=== PATIENT | male | born 1930 | race Caucasian/White ===

== ENCOUNTER 2018-07-15 16:40 | Inpatient (IN) | payer MEDICARE, BC ==
[~2018-07-15] VITALS: Ht 170.2 cm; Wt 98.9 kg
[2018-07-15] VITALS (7 sets, daily range): BP systolic 99–129; BP diastolic 46–89
--- NOTE | 2018-07-15 16:42 | NUR ---
PT BIBRA FROM HOME TO ER BED . 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 GOWNED AND PLACED ON MONITOR. RT AT BEDSIDE. PLACED ON BIPAP 15/5, R [address] O[address]%. [address] DAMIAN AT BEDSIDE W/ ORDERS. WILL CARRY OUT. Addendum: 07/15/18 at 1845 by JONN PT IS ASSIGNED TO ICU RM#: [id number], DX: RESPIRATORY FAILURE, AND ACCEPTING: MYNOR CAMPOS NP
--- NOTE | 2018-07-15 16:55 | NUR ---
BLOOD DRAWN FROM EXISTING IVHL. SENT TO LAB.
[2018-07-15] MEDS ORDERED: FUROSEMIDE 40 MG/4 ML VIAL ONE (16:58)
[2018-07-15] MEDS ORDERED: ASPIRIN 325 MG TABLET ONE (16:58)
[2018-07-15] MEDS ORDERED: methylPREDNISolone SOD SUCC 125 MG/2ML VIAL ONE (16:58)
[2018-07-15] MEDS ORDERED: IPRATROPIUM NEB FS 0.5 MG/2.5 ML AMPUL.NEB ONE (16:59)
[2018-07-15] MEDS ORDERED: ALBUTEROL FS 2.5 MG/3 ML VIAL.NEB ONE (16:59)
[2018-07-15] MEDS ORDERED: methylPREDNISolone SOD SUCC 125 MG/2ML VIAL IV ONE (17:00)
[2018-07-15] MEDS ORDERED: ASPIRIN 325 MG TABLET PO ONE (17:00)
[2018-07-15] MEDS ORDERED: CEFEPIME 1 GM in IV D5W 50 ML IV ONE (17:00)
[2018-07-15] MEDS ORDERED: FUROSEMIDE 40 MG/4 ML VIAL IV ONE (17:00)
[2018-07-15] MEDS ORDERED: ALBUTEROL FS 2.5 MG/3 ML VIAL.NEB CONTNEB ONE (17:00)
[2018-07-15] MEDS ORDERED: IPRATROPIUM NEB FS 0.5 MG/2.5 ML AMPUL.NEB NEB ONE (17:00)
[2018-07-15 17:02] LABS: BASOPHILS % (AUTO) 0.2 % (0.0-2.0); EOSINOPHILS % (AUTO) 1.6 % (0.0-6.0); HEMATOCRIT 40 % (39-51); LYMPHOCYTES # (AUTO) 3.1 /CMM (0.8-4.8); LYMPHOCYTES % (AUTO) 34.8 % (20.0-44.0); MEAN CORPUSCULAR HEMOGLOBIN 28 PG (26.0-33.0); MEAN CORPUSCULAR HGB CONC 30 g/dl (31.0-36.0); MEAN CORPUSCULAR VOLUME 93 fL (80-96); MONOCYTES # (AUTO) 0.5 /CMM (0.1-1.30); MONOCYTES % (AUTO) 5.8 % (2.0-12.0); NEUTROPHILS # (AUTO) 5.3 /CMM (1.8-8.9); NEUTROPHILS % (AUTO) 57.6 % (43.0-81.0); PLATELET COUNT (AUTO) 203 /CMM (150-450); RED BLOOD CELL COUNT(AUTO) 4.26 MIL/uL (4.5-6.0)
--- NOTE | 2018-07-15 17:07 | NUR ---
RT AT BEDSIDE FOR BREATHING TREATMENT.
--- NOTE | 2018-07-15 17:11 | NUR ---
RT NOTE PT PLACED ON BIPAP PER MD ORDER. SETTINGS FOLLOW 19/03 40%. PT AWAKE AND ALERT. ALARMS SET PER PROTOCOL AND AUDIBLE. BIPAP PLUGGED IN TO RED OUTLET. AMBU BAG AT BED SIDE. Addendum: 07/15/18 at 1713 by ARTIE POLANCO RT Amended: Links added.
[2018-07-15 17:17] LABS: CALCIUM, SERUM 8.5 mg/dL (8.5-10.1); CARBON DIOXIDE 26 mmol/L (21-32); CHLORIDE 104 mmol/L (98-107); CREATININE 1.6 mg/dL (0.6-1.3); GLUCOSE 181 mg/dL (74-106); POTASSIUM 3.6 mmol/L (3.5-5.1); SODIUM SERUM 138 mmol/L (136-145); UREA NITROGEN, BLOOD 23 mg/dL (7-18)
[2018-07-15 17:19] LABS: INR 0.95 (0.85-1.15)
[2018-07-15 17:23] LABS: ALANINE AMINOTRANSFERASE 15 U/L (12-78); ALBUMIN 3.7 g/dL (3.4-5.0); ALKALINE PHOSPHATASE 58 U/L (46-116); ASPARTATE AMINOTRANSFERASE 17 U/L (15-37); BILIRUBIN,DIRECT 0.1 mg/dL (0.0-0.2); BILIRUBIN,TOTAL 0.4 mg/dL (0.2-1.0); LIPASE 165 U/L (73-393); TOTAL PROTEIN, SERUM 7.2 g/dL (6.4-8.2)
[2018-07-15 17:25] LABS: TROPONIN I < 0.017 ng/mL (0.00-0.056)
[2018-07-15 17:27] LABS: ABG BASE EXCESS -1.7 mmol/L; ABG OXYGEN SATURATION 99.1 % (92.0-98.5); ABG PCO2 38.9 mmHg (35.0-45.0); ABG PH 7.389 (7.350-7.450); ABG PO2 365.8 mmHg (75.0-100.0); AaDO2 19.2 mmHg; COHb 0.9 % (0.5-1.5); MetHb 0.5 % (0.0-1.5); O2Hb 97.7 % (94.0-97.0)
[2018-07-15] MEDS ORDERED: LEVO75TA7 PO (17:45)
[2018-07-15] MEDS ORDERED: METO-358 PO (17:45)
[2018-07-15] MEDS ORDERED: TAMS0.4C34 PO (17:45)
[2018-07-15] MEDS ORDERED: BENA20TA9 PO (17:45)
[2018-07-15] MEDS ORDERED: FINA5TAB11 PO (17:45)
[2018-07-15 17:52] LABS: APPEARANCE,URINE Clear (CLEAR); BILIRUBIN,URINE Negative (NEGATIVE); BLOOD, URINE Moderate Ery/uL (NEGATIVE); COLOR,URINE Light yellow (YELLOW); KETONES,URINE Negative (NEGATIVE); LEUKOCYTE ESTERASE ,URINE Negative (NEGATIVE); NITRITE, URINE Negative (NEGATIVE); PH,URINE 6.5 (5.0-8.0); PROTEIN,URINE >=300 mg/dl (NEGATIVE); UGLUCOSE 100 MG/DL mg/dL (NEGATIVE); UROBILINOGEN,URINE 0.2 EU/dL (0.2)
[2018-07-15 18:03] LABS: BACTERIA,URINE Few /HPF (None Seen); RBC,URINE 21-50 /HPF (0-2); SQUAMOUS EPITHELIAL CELL,UR Few /HPF (None Seen); WBC,URINE 0-2 /HPF (0-3)
--- NOTE | 2018-07-15 18:13 | NUR ---
CALLED NURSING FORMULA BOTTLER AND REQUESTED AN ICU BED FOR THIS PT.
--- NOTE | 2018-07-15 18:37 | NUR ---
SON RITU LEFT CONTACT # [phone]
[2018-07-15] MEDS ORDERED: ACETAMINOPHEN 650 MG/SUPP.RECT RC PRN (19:00)
[2018-07-15] MEDS ORDERED: IV NS 0.9% 1,000 ML IV ONE (19:00)
[2018-07-15] MEDS ORDERED: ONDANSETRON HCL/PF 4 MG/2 ML VIAL IVP PRN (19:00)
[2018-07-15] MEDS ORDERED: ZOLPIDEM TARTRATE 5 MG TABLET PO PRN (19:00)
[2018-07-15] MEDS ORDERED: ALBUTEROL FS 2.5 MG/3 ML VIAL.NEB NEB PRN (19:00)
[2018-07-15] MEDS ORDERED: NOREPINEPHRINE 8 MG in IV D5W 500 ML IV PRN (19:00)
[2018-07-15] MEDS ORDERED: IPRATROPIUM BROMIDE 14 GM INHALER (or 12.9 GM) IH PRN (19:00)
--- NOTE | 2018-07-15 19:15 | NUR ---
PT IS ASSIGNED TO ICU RM#: [id number], DX: RESP FAILURE, AND ACCEPTING: MYNOR CAMPOS NP
--- NOTE | 2018-07-15 19:22 | NUR ---
REPORT GIVEN TO SHANNA MCINTYRE, PT AWAITING TRANSFER TO FLOOR.
[2018-07-15] MEDS ORDERED: NITROGLYCERIN 0.4 MG/TAB BOTTLE SL ONE (19:30)
--- NOTE | 2018-07-15 19:50 | NUR ---
DIRECTOR REGULATORY COMPLIANCERESEARCH TECH NOTES RECEIVED PATIENT FROM ER VIA [facility]. PATIENT IS AWAKE, ALERT AND ORIENTED X3 BUT WITH PERIODS OF FORGETFULNESS. BREATHING IS SLIGHTLY LABORED, BUT IMPROVING WHILE ON BIPAP 15/5, RATE OF 14 @ 40% FIO2. BEDSIDE COMPONENT ENGINEER SHOWS SINUS RHYTHM, WITH OCCASIONAL PVCs. PATIENT ABLE TO ASSIST WITH TURNING AND REPOSITIONING. LEFT AC #18 FLUSHED WITH NS, PATENT AND INTACT, FREE FROM ANY S/S OF INFILTRATION OR PHLEBITIS. RAMSAY CATHETER PATENT AND INTACT, DRAINING CLEAR YELLOW URINE VIA GRAVITY. PATIENT ORIENTED TO TV REMOTE AND CALL LIGHT SYSTEM, VERBALIZING UNDERSTANDING REGARDING WHEN AND HOW TO ASK FOR ASSISTANCE. WILL CONTINUE TO CLOSELY MONITOR
[2018-07-15] MEDS ORDERED: IPRATROPIUM NEB FS 0.5 MG/2.5 ML AMPUL.NEB NEB PRN (20:00)
--- NOTE | 2018-07-15 21:00 | NUR ---
DISPATCH CLERK NOTES PATIENT PULLING OFF BIPAP MASK D/T DISCOMFORT. RT BRAD AT BEDSIDE FOR MASK ADJUSTMENT.
[2018-07-15] MEDS: HEPARIN SODIUM, PORCINE 5000 UNITS/1 ML VIAL SQ SCH (22:11)
[2018-07-15] MEDS: TAMSULOSIN 0.4 MG CAP.SR.24H PO SCH (22:13)
--- NOTE | 2018-07-15 22:15 | NUR ---
GLASS ENAMEL MIXER NOTES PATIENT NOTED WITH INCREASE IN FREQUENCY OF UNIFOCAL PVCs. RADHA PONCE BOOK PACKER MADE AWARE, LABS ORDERED. WILL MONITOR
--- NOTE | 2018-07-15 22:16 | NUR ---
pt refused bipap. placed on 10l simple mask at this time Addendum: 07/15/18 at 2216 by NOAH TURCIOS RT Amended: Links added.
--- NOTE | 2018-07-15 22:23 | NUR ---
pt on 10l simple mask, flow decreased to 6l due to increased spo2 Addendum: 07/15/18 at 2224 by NOAH PANTOJA Amended: Links added.
--- NOTE | 2018-07-15 22:50 | NUR ---
GEOLOGICAL TECHNICIAN NOTES MAGNESIUM LEVEL 1.8, RADHA PONCE RAIL TECHNICIAN MADE AWARE. RAIL TECHNICIAN ALSO MADE AWARE REGARDING PATIENT'S NONCOMPLIANCE WITH THE TREATMENT PLAN. PATIENT WAS REMOVING BIPAP SO HE WAS PLACED ON SIMPLE MASK AT 10LPM, TITRATED DOWN TO 6LPM, BUT NOW REFUSING MASK. PATIENT ON ROOM AIR. WILL MONITOR RESPIRATORY STATUS
--- NOTE | 2018-07-15 23:00 | NUR ---
PUMP ERECTOR NOTES PATIENT REFUSING IV INSERTION. EXPLAINED TO THE PATIENT REGARDING THE NEED TO HAVE ANOTHER IV LINE. PATIENT VERBALIZES UNDERSTANDING, BUT STATES "I ALREADY HAVE 1 AND THAT SHOULD BE ENOUGH."
[2018-07-16] VITALS (27 sets, daily range): BP systolic 88–156; BP diastolic 34–89
--- NOTE | 2018-07-16 01:00 | NUR ---
RN NOTES PATIENT NOTED TO TRY TO GET OUT OF BED, INCREASED CONFUSION COMPARED TO PREVIOUS BASELINE. STILL STRONGLY REFUSING BIPAP, BUT AGREES TO SIMPLE MASK @ 10LPM. RADHA PONCE NOTIFIED, WILL MONITOR
--- NOTE | 2018-07-16 03:00 | NUR ---
POULTRY HUSBANDMAN NOTES PATIENT NOTED WITH 10 SECOND RUN OF VTACH WHILE SLEEPING. CURRENTLY ON O2 VIA SIMPLE MASK @ 10 LPM. RADHA PONCE MADE AWARE AND UPDATED REGARDING PATIENT'S CURRENT STATUS. STAT ABG ORDERED. ABG RESULT RELAYED TO POISING INSPECTOR. NNO RECEIVED, WILL CONTINUE TO CLOSELY MONITOR
[2018-07-16 03:30] LABS: ABG OXYGEN SATURATION 97.9 % (92.0-98.5); ABG PCO2 31.1 mmHg (35.0-45.0); ABG PO2 125.9 mmHg (75.0-100.0); AaDO2 267.7 mmHg; COHb 0.3 % (0.5-1.5); MetHb 0.5 % (0.0-1.5); O2Hb 97.1 % (94.0-97.0); SITE, ABG Right Radial; VENT MODE, BG 10L SIMPLE MASK
[2018-07-16 04:48] LABS: BASOPHILS % (AUTO) 0.1 % (0.0-2.0); HEMATOCRIT 43 % (39-51); HEMOGLOBIN 13.9 g/dL (13.5-17.5); LYMPHOCYTES # (AUTO) 0.6 /CMM (0.8-4.8); LYMPHOCYTES % (AUTO) 4.1 % (20.0-44.0); MEAN CORPUSCULAR HEMOGLOBIN 31 PG (26.0-33.0); MEAN CORPUSCULAR HGB CONC 32 g/dl (31.0-36.0); MEAN CORPUSCULAR VOLUME 97 fL (80-96); MONOCYTES # (AUTO) 0.1 /CMM (0.1-1.30); MONOCYTES % (AUTO) 1.1 % (2.0-12.0); NEUTROPHILS % (AUTO) 94.7 % (43.0-81.0); PLATELET COUNT (AUTO) 229 /CMM (150-450); RDW COEFFICIENT OF VARIATION 14.9 (11.5-15.0); RED BLOOD CELL COUNT(AUTO) 4.45 MIL/uL (4.5-6.0); WHITE BLOOD COUNT (AUTO) 13.7 K/uL (4.3-11.0)
[2018-07-16 05:20] LABS: ALANINE AMINOTRANSFERASE 13 U/L (12-78); ALBUMIN 3.4 g/dL (3.4-5.0); ALKALINE PHOSPHATASE 50 U/L (46-116); ASPARTATE AMINOTRANSFERASE 17 U/L (15-37); B-TYPE NATRIURETIC PEPTIDE 1792 PG/ML (0-125); BILIRUBIN,TOTAL 0.4 mg/dL (0.2-1.0); CALCIUM, SERUM 9.1 mg/dL (8.5-10.1); CARBON DIOXIDE 24 mmol/L (21-32); CHLORIDE 105 mmol/L (98-107); CREATININE 2.1 mg/dL (0.6-1.3); GLUCOSE 189 mg/dL (74-106); PHOSPHORUS 2.6 mg/dL (2.5-4.9); POTASSIUM 4.4 mmol/L (3.5-5.1); SODIUM SERUM 141 mmol/L (136-145); UREA NITROGEN, BLOOD 27 mg/dL (7-18)
--- NOTE | 2018-07-16 05:40 | NUR ---
PROP CUTTER NOTES PATIENT NOTED WITH MORE FREQUENT EPISODES AND LONGER DURATIONS OF VTACH. RADHA PONCE OVERAGE SHORTAGE AND DAMAGE CLERK NOTIFIED, LABS ALSO RELAYED. RADHA WITH ORDER FOR STAT EKG, THEN START AMIODARONE DRIP PER PROTOCOL. RADHA ALSO WITH ORDER FOR CARDIOLOGY CONSULT. NOTIFIED RADHA THAT EXISTING ORDER ALREADY PLACED FOR CARDIOLOGY CONSULT WITH DR. BRANNON. PER RADHA, "IF DR BRANNON UNAVAILABLE, CONSULT WITH DR GARCIA OR DR ALEJANDRA
[2018-07-16] MEDS ORDERED: AMIODARONE 150 MG/3 ML VIAL IV ONE ×2 (05:49→05:54)
--- NOTE | 2018-07-16 05:58 | NUR ---
ARC CUTTER PLASMA ARC NOTES 0558 TELEMETRY READING AND STAT EKG SHOWS SINUS TACHYCARDIA WITH FREQUENT PVCs. AMIODARONE DRIP LOADING DOSE INITIATED ORDERED 0608 REMAINS IN SINUS TACHYCARDIA WITH FREQUENT PVCs. AMIODARONE DRIP PER PROTOCOL INITIATED
[2018-07-16] MEDS ORDERED: AMIODARONE 900 MG in IV D5W 482 ML IV PRN (06:00)
[2018-07-16] MEDS ORDERED: AMIODARONE 150 MG in IV D5W 100 ML IV ONE (06:00)
--- NOTE | 2018-07-16 07:00 | NUR ---
RN NOTES RECEIVED PT ON BED, A/Ox2,CONFUSED AND FORGETFUL AT TIMES , ON SIMPLE MASK AT 10L , O2 SAT 100% AT THIS TIME, RESPIRATION EVEN AND UNLABORED, ON TELE ST WITH PVC'S , HR IN 100'S , RAMSAY DRINING TO GRAVITY WITH YELLOW CLEAR URINE, PT IS NPO AT THIS TIME PER MD ORDER, AMIODARONE E GTT AT 1MG/MIN RUNNING VIA L AC IV SITE G 18, SITE CLEAN, DRY AND INTACT, PT HAS TENDENCY TO PULL ON HIS IV LINES AND O2 MASK , SITTER IS AT THE BEDSIDE FOR SAFETY PRECAUTIONS , SR UP x3, CALL LIGHT WITHIN EASY REACH, BED LOCKED AND IN LOWEST POSITION, CONTINUE TO MONITOR.
--- NOTE | 2018-07-16 07:00 | NUR ---
CABLE INSTALLER REPAIRER HELPER CLOSING NOTES PATIENT IN BED, CONTINUES TO BE NONCOMPLIANT WITH THE TREATMENT PLAN, REFUSING BIPAP, CONTINUOUSLY TRYING TO REMOVE SIMPLE MASK @ 10LPM, NEEDING FREQUENT REMINDERS TO LEAVE MASK ON. CONTINUES ON AMIODARONE DRIP PER PROTOCOL, CURRENTLY INFUSING @ 1MG/MIN VIA LEFT AC #18G. WILL ENDORSE THE PATIENT TO THE AM SHIFT NURSE FOR CONTINUITY OF CARE
--- NOTE | 2018-07-16 07:15 | NUR ---
RT PT RECEIVED ON 10L SIMPLE MASK TOLERATING WELL. PT IS AWAKE AND ALERT. NO SIGNS OF RESPIRATORY DISTRESS NOTED, WILL CONTINUE TO MONITOR.
[2018-07-16] MEDS: FINASTERIDE (5 MG) 5 MG TABLET PO SCH (08:07)
[2018-07-16] MEDS: LEVOTHYROXINE SODIUM 75 MCG TABLET PO SCH (08:08)
[2018-07-16] MEDS: methylPREDNISolone SOD SUCC 40 MG/ML VIAL IV SCH ×3 (08:08→16:27)
[2018-07-16] MEDS: METOPROLOL SUCCINATE 50 MG TAB.SR.24H PO SCH (08:08)
[2018-07-16] MEDS: HEPARIN SODIUM, PORCINE 5000 UNITS/1 ML VIAL SQ SCH ×2 (08:09→21:32)
--- NOTE | 2018-07-16 08:38 | NUR ---
REPORT GIVEN TO JON FOR CONTINUITY OF CARE .
[2018-07-16 08:44] LABS: THYROID STIMULATING HORMONE 2.42 uIU/mL (0.358-3.74)
[2018-07-16] MEDS ORDERED: PANTOPRAZOLE 40 MG VIAL IV SCH (09:00)
[2018-07-16] MEDS ORDERED: BENAZEPRIL HCL 20 MG TABLET PO SCH (09:00)
[2018-07-16] MEDS ORDERED: FUROSEMIDE 40 MG/4 ML VIAL IV SCH (09:00)
--- NOTE | 2018-07-16 09:00 | NUR ---
HIGHWAY MAINTENANCE CREW WORKER NOTE RECEIVED PATIENT IN BED ,ALERT WITH CONFUSION TRYING TO GET OUT OFF BED AT ALL TIME ,ON TELE MONITOR ON ON IVF ORDERED AND AMIODARONE DRIP ,SITTER AT BEDSIDE ON SIMPLE MASK 10L OF O2 , NO SOB ,WILL CONT TO MONITOR CLOSELY, SR-ST 103 . WITH RAMSAY CATH TO GRAVITY
--- NOTE | 2018-07-16 09:21 | NUR ---
PRECISION FARMING COORDINATOR NOTE PER RT OK TO CHANGE TO 3L NC, SAT 94%, SEEN BY DR JAUREGUI AT BEDSIDE ,[place] [address] STATED OK TO CONT CARE, ALSO NEW HL ON LT FA TERESA 20 INSERTED WITH GOOD BLOOD RETURN Addendum: 07/16/18 at 0933 by JON HARRINGTON RN ECHO DONE ,NOT IN ACUTE DISTRESS
[2018-07-16 09:33] LABS: TROPONIN I 0.235 ng/mL (0.00-0.056)
--- NOTE | 2018-07-16 10:02 | NUR ---
ICI RN NOTE PER DR JAUREGUI OK TO START ON REGULAR CARDIAC DIET
--- NOTE | 2018-07-16 10:14 | NUR ---
PHLEBOTOMY INSTRUCTOR NOTE AMIODARONE DRIP STOPPED PER ORDER DR BRANNON
[2018-07-16] MEDS: ASPIRIN 81 MG TAB.CHEW PO SCH (11:00)
--- NOTE | 2018-07-16 11:02 | NUR ---
TRANSPORTATION MAINTENANCE OPERATOR NOTE ABLE TO SIT AT EDGE OF BED, AND DR SANCHEZ NECROLOGIST AT BEDSIDE
--- NOTE | 2018-07-16 11:57 | NUR ---
CONCERT MANAGER NOTE US OF KIDNEY DOING NOW , SON AT BEDSIDE Addendum: 07/16/18 at 1313 by JON HARRINGTON RN UP ON CHAIR TOLERATED, SAT 93% ,WILL CONT TO MONITOR CLOSELY
--- NOTE | 2018-07-16 13:34 | NUR ---
CEMENT TILE MAKER NOTE BACK TO BED , [facility] CALLED ORDERED Addendum: 07/16/18 at 1444 by JON HARRINGTON RN DOING BILATERAL LEG DOPPLER STUDY
--- NOTE | 2018-07-16 17:28 | NUR ---
MAINTENANCE SHOP MANAGER NOTE VERY RESTLESS, REMOVE IV HL , ONE ON RT FA TERESA 22 INSERTED WITH GOOD BLOOD RETURN Addendum: 07/16/18 at 1800 by JON HARRINGTON RN FED BY DATA TYPIST ATE 25% OF FOOD
[2018-07-16] MEDS: CEFTRIAXONE 1 G in IV D5W 50 ML IV SCH (18:07)
--- NOTE | 2018-07-16 18:34 | NUR ---
TAX FORM PREPARER NOTE PATIENT VERY RESTLESS AND AGITATED TRYING TO GET OUT OFF BED , CALLED TO JOCELYN MCINTYRE HERD TESTER WITH ORDER ATIVAN 1 MG IVQ4 HOUR AND PSYCH EVAL ,ORDER CARRIED OUT Addendum: 07/16/18 at 1848 by JON HARRINGTON RN FAXED FACE SHEET TO [facility], DR WOODS BABY REGISTRY SALES CONSULTANT TODAY Addendum: 07/16/18 at 1856 by JON HARRINGTON RN ATIVAN 1 MG IVP GIVEN ORDERED FOR AGITATION .MALOU F\U , BP 156/104, SAT 95%
[2018-07-16] MEDS: LORAZEPAM INJ 2 MG/ML VIAL IV PRN ×2 (18:51→22:43)
--- NOTE | 2018-07-16 19:00 | NUR ---
Received patient awake,alert,restless and confuse,but responds to his name,able to tell his birthdate,follows simple commands,but confuse and talks incoherently.With O2 via NC 3 L/min,+ cough.Not in any distress,breathing regular and non labored. With sitter at bedside due to agitation and pulling lines and tubes. 2000 Remains very restless and agitated ,pulling tubes ,kicking legs and both arms up and down ,at some point unable to read BP accurately due to patient moving a lot.
[2018-07-16] MEDS: IPRATROPIUM NEB FS 0.5 MG/2.5 ML AMPUL.NEB NEB SCH (19:49)
[2018-07-16] MEDS: ALBUTEROL FS 2.5 MG/3 ML VIAL.NEB NEB SCH (19:49)
[2018-07-16] MEDS: TAMSULOSIN 0.4 MG CAP.SR.24H PO SCH (21:31)
--- NOTE | 2018-07-16 22:00 | NUR ---
Remains very agitated,tachycardic HR-110's,pulling ,and playing with gown and tubes,not listening,seems more confuse,not following commands. 2250 PRN Ativan IV given,will closely monitor neuro and respiratory status. 2300 Ativan seems working well,more quiet ,less restless but still moving both arms and legs.
[2018-07-17] VITALS (22 sets, daily range): BP systolic 90–139; BP diastolic 52–79
--- NOTE | 2018-07-17 | NUR ---
Sedation (Ativan) effective,patient asleep,arousable.Maintained sitter at bedside for patient safety. HR in the 80's,BP in the low 100's,saturating 94-96% ,still on NC 3L/min.Aspiration Precaution observed.
[2018-07-17] MEDS: IPRATROPIUM NEB FS 0.5 MG/2.5 ML AMPUL.NEB NEB SCH ×4 (01:17→20:00)
[2018-07-17] MEDS: ALBUTEROL FS 2.5 MG/3 ML VIAL.NEB NEB SCH ×4 (01:17→20:00)
--- NOTE | 2018-07-17 04:00 | NUR ---
Am care bath doen,still drowsy from the sedation but arousable,calm ,not agitated.av/as stable,not in any distress.
[2018-07-17 04:40] LABS: HEMATOCRIT 42 % (39-51); HEMOGLOBIN 13.9 g/dL (13.5-17.5); LYMPHOCYTES # (AUTO) 0.9 /CMM (0.8-4.8); LYMPHOCYTES % (AUTO) 4.5 % (20.0-44.0); MEAN CORPUSCULAR HEMOGLOBIN 31 PG (26.0-33.0); MEAN CORPUSCULAR HGB CONC 33 g/dl (31.0-36.0); MEAN CORPUSCULAR VOLUME 94 fL (80-96); MONOCYTES # (AUTO) 0.9 /CMM (0.1-1.30); MONOCYTES % (AUTO) 4.4 % (2.0-12.0); NEUTROPHILS # (AUTO) 18.6 /CMM (1.8-8.9); NEUTROPHILS % (AUTO) 91.1 % (43.0-81.0); PLATELET COUNT (AUTO) 232 /CMM (150-450); RDW COEFFICIENT OF VARIATION 15.1 (11.5-15.0); RED BLOOD CELL COUNT(AUTO) 4.45 MIL/uL (4.5-6.0); WHITE BLOOD COUNT (AUTO) 20.4 K/uL (4.3-11.0)
[2018-07-17 04:53] LABS: CALCIUM, SERUM 9.1 mg/dL (8.5-10.1); CARBON DIOXIDE 27 mmol/L (21-32); CHLORIDE 105 mmol/L (98-107); GLUCOSE 135 mg/dL (74-106); POTASSIUM 4.3 mmol/L (3.5-5.1); SODIUM SERUM 139 mmol/L (136-145); UREA NITROGEN, BLOOD 39 mg/dL (7-18)
[2018-07-17 05:11] LABS: BAND % (MANUAL) 2 % (0.0-5.0); LYMPHOCYTES % (MANUAL) 6 % (16-48); MONOCYTES % (MANUAL) 4 % (0-11.0); NEUTROPHILS % (MANUAL) 88 (42-76)
--- NOTE | 2018-07-17 07:10 | NUR ---
Remains stable,saturating 94% on NC 3 L/min.Still asleep,maintained on 1:1 watch (sitter).Report given to Azalea MCINTYRE
[2018-07-17 07:38] LABS: CREATININE, URINE 179.8 MG/DL (30.0-125.0); URINE TOTAL PROTEIN 57.9 mg/dL (0-11.9)
[2018-07-17 07:56] LABS: APPEARANCE,URINE SL CLOUDY (CLEAR); BILIRUBIN,URINE NEGATIVE (NEGATIVE); BLOOD, URINE 3+ Ery/uL (NEGATIVE); COLOR,URINE YELLOW (YELLOW); KETONES,URINE NEGATIVE (NEGATIVE); LEUKOCYTE ESTERASE ,URINE NEGATIVE (NEGATIVE); NITRITE, URINE NEGATIVE (NEGATIVE); PROTEIN,URINE 1+ mg/dl (NEGATIVE); UGLUCOSE NEGATIVE (NEGATIVE); UROBILINOGEN,URINE 0.2 EU/dL (0.2)
[2018-07-17] MEDS: ASPIRIN 81 MG TAB.CHEW PO SCH (08:13)
[2018-07-17] MEDS: FINASTERIDE (5 MG) 5 MG TABLET PO SCH (08:13)
[2018-07-17] MEDS: methylPREDNISolone SOD SUCC 40 MG/ML VIAL IV SCH ×3 (08:13→16:59)
[2018-07-17] MEDS: LEVOTHYROXINE SODIUM 75 MCG TABLET PO SCH (08:13)
[2018-07-17] MEDS: HEPARIN SODIUM, PORCINE 5000 UNITS/1 ML VIAL SQ SCH ×2 (08:14→20:36)
[2018-07-17 08:17] LABS: BACTERIA,URINE Few /HPF (None Seen); SQUAMOUS EPITHELIAL CELL,UR Few /HPF (None Seen)
[2018-07-17 08:18] LABS: HYALINE CASTS, URINE Few /LPF (None Seen); RBC,URINE 21-50 /HPF (0-2)
[2018-07-17 08:19] LABS: MUCUS,URINE Moderate /LPF (None Seen)
[2018-07-17] MEDS: METOPROLOL SUCCINATE 50 MG TAB.SR.24H PO SCH (09:13)
[2018-07-17] MEDS: ATORVASTATIN 10 MG TABLET PO SCH (09:15)
--- NOTE | 2018-07-17 09:30 | NUR ---
RN NOTES 0705 RECEIVED PT ASLEEP, EASY TO AROUSE. ON 02 AT 3LPM VIA OH. NO SOB NOTED. HOB ELEVATED. NO SIGNS OF PAIN NOTED. IV LINE IN PLACE. FC IN PLACE. NO HEMATURIA NOTED. PT COMFORTABLE. ON 1:1 SITTER. NO AGITATION NOTED. WILL MONITOR. 0830 SEEN AND EXAMINED BY GERRY CAMPOS NP. AWARE OF LAB VALUES: WBC 20.4, BUN 30, CREA 2.0 AND CXR RESULT. AWAITING FOR DR CASE CONSULT FOR AGITATION AND DR ATKINS'S CONSULT FOR ELEVATED WBC. PT AFEBRILE. ON IV ATB. NO ASE NOTED. PT CLEAR FOR DOWNGRADE TO TELE PER SLEEP SCIENTIST. WILL MONITOR. 0900 SEEN AND EXAMINED BY DR PELEG. FRANKLIN AWARE OF CXR RESULT. PT ON 02 VIA OH. NO SOB NOTED. HOB ELEVATED. PT CLEAR TO DOWNGRADE PER PULMO. WILL CONTINUE TO MONITOR.
[2018-07-17 09:52] LABS: EOSINOPHIL,URINE None Seen
[2018-07-17] MEDS: IV NS 0.9% 1,000 ML IV PRN (12:27)
[2018-07-17] MEDS: LORAZEPAM INJ 2 MG/ML VIAL IV PRN (12:52)
--- NOTE | 2018-07-17 18:00 | NUR ---
RN NOTES SEEN AND EXAMINED BY DR AHUMADA. PT DROWSY. AROUSABLE TO NAME AND TOUCH. MD REVIEWED H&P, CURRENT MEDS AND LAB VALUES. PER MD, SHE WILL CALL LATER TONIGHT TO ASK HOW THE PT IS DOING. WILL CONTINUE TO MONITOR.
[2018-07-17] MEDS: CEFTRIAXONE 1 G in IV D5W 50 ML IV SCH (18:08)
[2018-07-17 18:28] LABS: BILIRUBIN,DIRECT 0.1 mg/dL (0.0-0.2)
[2018-07-17] MEDS ORDERED: OLANZAPINE 2.5 MG TABLET PO PRN (18:30)
--- NOTE | 2018-07-17 18:30 | NUR ---
RN NOTES PT TRANSFERRED TO ROOM 321-1. FRANCISCO JAVIER CARRILLO TOOK OVER PT'S CARE. IN STABLE CONDITION.
--- NOTE | 2018-07-17 19:30 | NUR ---
HAND SHOES SEWER OPENING NOTES RECEIVED PATIENT IN BED ASLEEP. EASILY AROUSABLE. IN TABLE STABLE CONDITION. BREATHING EVEN AND UNLABORED. NO SOB NOTED. ON 3L OF OXYGEN VIA NC. NO S/S OF PAIN OR DISCOMFORT. NO FACIAL GRIMACING. IV ACCESS ON RIGHT HAND #20 INTACT AND PATENT - INFUSING NS @ 50ML/HR. PATIENT WITH RAMSAY CATH - DRAINING CLEAR YELLOW URINE. ALL OTHER NEEDS ATTENDED TO. SITTER AT BEDSIDE. CALL LIGHT WITHIN REACH. BED ON LOWEST LOCKED POSITION. WILL CONTINUE TO MONITOR.
[2018-07-17] MEDS: TAMSULOSIN 0.4 MG CAP.SR.24H PO SCH (21:02)
[2018-07-18] VITALS: BP 112/62
[2018-07-18] MEDS: IPRATROPIUM NEB FS 0.5 MG/2.5 ML AMPUL.NEB NEB SCH ×4 (01:49→19:05)
[2018-07-18] MEDS: ALBUTEROL FS 2.5 MG/3 ML VIAL.NEB NEB SCH ×4 (01:50→19:05)
--- NOTE | 2018-07-18 01:51 | NUR ---
PRODUCTION LABORER NOTES CONTINUOUS LOFT OPERATOR DEMOND LUIS MADE AWARE OF PATIENT'S LACTIC ACID OF 2.2. DECREASED SINCE PREVIOUS (2.5) - WITH ORDERS TO INCREASE IV FLUIDS TO 75ML/HR. - NOTED AND CARRIED OUT.
[2018-07-18 04:00] VITALS: BP_SYST 134; BP_SYST 144; BP_DIAS 79; BP_DIAS 82
--- NOTE | 2018-07-18 04:15 | NUR ---
INSIDE SALES ADVISOR NOTES SPECIMEN TECHNICIAN CHECKED PATIENT'S ORTHOSTATIC BPs. UNABLE TO OBTAIN STANDING BP DUE TO PATIENT BEING UNABLE/UNSTEADY TO STAND.
[2018-07-18] MEDS: IV NS 0.9% 1,000 ML IV PRN ×2 (06:22→22:46)
[2018-07-18 06:38] LABS: BASOPHILS % (AUTO) 0.1 % (0.0-2.0); HEMATOCRIT 43 % (39-51); HEMOGLOBIN 13.9 g/dL (13.5-17.5); LYMPHOCYTES # (AUTO) 0.7 /CMM (0.8-4.8); LYMPHOCYTES % (AUTO) 5.1 % (20.0-44.0); MEAN CORPUSCULAR HEMOGLOBIN 31 PG (26.0-33.0); MEAN CORPUSCULAR HGB CONC 33 g/dl (31.0-36.0); MEAN CORPUSCULAR VOLUME 95 fL (80-96); MONOCYTES # (AUTO) 0.8 /CMM (0.1-1.30); MONOCYTES % (AUTO) 5.3 % (2.0-12.0); NEUTROPHILS # (AUTO) 12.8 /CMM (1.8-8.9); NEUTROPHILS % (AUTO) 89.5 % (43.0-81.0); PLATELET COUNT (AUTO) 225 /CMM (150-450); RDW COEFFICIENT OF VARIATION 14.7 (11.5-15.0); WHITE BLOOD COUNT (AUTO) 14.3 K/uL (4.3-11.0)
--- NOTE | 2018-07-18 07:02 | NUR ---
STOCKHOLDER CLOSING NOTES PATIENT IN BED AWAKE. ALERT AND ORIENTED X1-2. STABLE CONDITION THROUGHOUT SHIFT. BREATHING EVEN AND UNLABORED. NO SOB NOTED. ON 3L OF OXYGEN VIA NC. NO S/S OF PAIN OR DISCOMFORT. NO FACIAL GRIMACING. IV ACCESS ON RIGHT HAND #20 INTACT AND PATENT - INFUSING NS @ 75ML/HR. PATIENT WITH RAMSAY CATH - DRAINING CLEAR YELLOW URINE. ALL OTHER NEEDS ATTENDED TO. SITTER AT BEDSIDE. CALL LIGHT WITHIN REACH. BED ON LOWEST LOCKED POSITION. WILL ENDORSE TO ONCOMING NURSE FOR CONTINUITY OF CARE.
[2018-07-18 07:05] LABS: CALCIUM, SERUM 9.1 mg/dL (8.5-10.1); CARBON DIOXIDE 26 mmol/L (21-32); CHLORIDE 105 mmol/L (98-107); CREATININE 1.9 mg/dL (0.6-1.3); GLUCOSE 128 mg/dL (74-106); POTASSIUM 4.1 mmol/L (3.5-5.1); SODIUM SERUM 142 mmol/L (136-145); UREA NITROGEN, BLOOD 48 mg/dL (7-18)
--- NOTE | 2018-07-18 07:10 | NUR ---
MOLYBDENUM STEAMER OPERATOR. PT RECEIVED A&0X1, AGITATED BUT RESPONSIVE TO REORIENTATION AT THIS TIME. PT DENIES PAIN. PT WITH IVC INTACT AND OPERATIONAL. O2 SUPPORT VIA NC AT 3LPM. PT BED IN LOWEST LOCKED POSITION WITH HANDRAILSX4 AND CALL FISHER WITH REACH, HOB ELEVATED AND BED ALARM ENGAGED. PT BRIEFED ON TODAY'S POC AND IS WITHOUT CONCERN OR COMPLAINT. WILL CONTINUE POC.
[2018-07-18 08:00] VITALS: BP 144/96
[2018-07-18] MEDS ORDERED: IV NS 0.9% 500 ML BAG IV ONE (08:00)
[2018-07-18] MEDS: methylPREDNISolone SOD SUCC 40 MG/ML VIAL IV SCH ×2 (08:26→13:41)
[2018-07-18] MEDS: ASPIRIN 81 MG TAB.CHEW PO SCH (08:26)
[2018-07-18] MEDS: FINASTERIDE (5 MG) 5 MG TABLET PO SCH (08:26)
[2018-07-18] MEDS: LORAZEPAM INJ 2 MG/ML VIAL IV PRN ×2 (08:26→14:20)
[2018-07-18] MEDS: ATORVASTATIN 10 MG TABLET PO SCH (08:26)
[2018-07-18] MEDS: LEVOTHYROXINE SODIUM 75 MCG TABLET PO SCH (08:27)
[2018-07-18] MEDS: METOPROLOL SUCCINATE 50 MG TAB.SR.24H PO SCH (08:27)
[2018-07-18] MEDS: HEPARIN SODIUM, PORCINE 5000 UNITS/1 ML VIAL SQ SCH ×2 (09:00→22:05)
--- NOTE | 2018-07-18 09:30 | NUR ---
BEATING MACHINE OPERATOR. PT HOSTILE AND NOT RESPONSIVE TO REORIENTATION OR CALM REASSURANCE. PT PULLING OFF CLOTHES AND YELLING. PRN ATIVAN ADMINISTERED. WILL CONTINUE TO MONITOR.
--- NOTE | 2018-07-18 13:45 | NUR ---
CRITICAL LACTIC 2.4 REPORTED TO MD MONTOYAITILOLI. NO NEW ORDERS AT THIS TIME.
--- NOTE | 2018-07-18 14:22 | NUR ---
MSRN. PT WITH INCREASING AGITATION AND NOT RESPONDING TO DIVERSION OR ENGAGEMENT FROM STAFF 1:1. PRN TO BE ADMINISTERED.
--- NOTE | 2018-07-18 17:00 | NUR ---
RT AT BEDSIDE.
--- NOTE | 2018-07-18 17:00 | NUR ---
MSRN. 2ND CRITICAL LACTIC RESULTED, SONAM HAGER AND MD CLARK (WHO WAS JUST SAW PT) INFORMED. NOT ORDERS AT THIS TIME.
--- NOTE | 2018-07-18 18:45 | NUR ---
PT WITH CHANGE IN BREATHING. PT SUDDENLY WITH INCREASED WORK OF BREATHING AND AUDIBLE WHEEZING. PT CHANGED TO SIMPLE MASK AT 6LPM, REPOSITIONED, CONT PULSE OX COMMENCED, RT CALLED FOR RE-ASSESSMENT. SONAM HAGER MADE AWARE.
--- NOTE | 2018-07-18 19:15 | NUR ---
ENGINEER STATION MAINLINE DMITIRI ORDERING STAT CXR AND NOTIFICATION IF ABNORMAL. PRN RT THERAPIES TO BE ORDERED. IF PT DOESN'T IMPROVE CONSIDER ICU TRANS FOR BI.PAP. ORDERS PLACED, WILL ENDORSE TO NIGHT NURSE.
[2018-07-18] MEDS: CEFTRIAXONE 1 G in IV D5W 50 ML IV SCH (19:19)
--- NOTE | 2018-07-18 19:29 | NUR ---
MSRN CLOSING. PT WITH DECREASED WOB POST RT THERAPY. PT WITH O2 VIA NC AT 3LPM. IVC INFUSING PER RX. PT WITH CXR AT THIS TIME. PT WITH 1:1 FOR SAFETY. PT BED IN LOWEST LOCKED POSITION WITH HANDRAILSX4 AND CALL FISHER WITHIN REACH. WILL ENDORSE TO NIGHT NURSE FOR JULIO CESAR
[2018-07-18] MEDS ORDERED: IPRATROPIUM NEB FS 0.5 MG/2.5 ML AMPUL.NEB NEB PRN (19:30)
[2018-07-18] MEDS ORDERED: ALBUTEROL FS 2.5 MG/3 ML VIAL.NEB NEB PRN (19:30)
[2018-07-18 20:00] VITALS: BP_SYST 133; BP_SYST 157; BP_DIAS 54; BP_DIAS 95
--- NOTE | 2018-07-18 20:08 | NUR ---
ms/rn notes Received patient , a/ox1. with O2 @3l nc. with sob upon exertion. With 1:1 sitter at bedside. Vital signs stable, afebrile. cxr done. Called and left a message for Insurance Claims SupervisorNoah.Regarding Lactic acid results and Cxr. will wait for call back.
[2018-07-18 20:31] VITALS: BP 149/91
[2018-07-18] MEDS ORDERED: IV NS 0.9% 500 ML IV ONE (21:00)
[2018-07-18] MEDS: TAMSULOSIN 0.4 MG CAP.SR.24H PO SCH (21:51)
[2018-07-19] VITALS: BP 150/90
[2018-07-19] MEDS: IPRATROPIUM NEB FS 0.5 MG/2.5 ML AMPUL.NEB NEB SCH ×4 (00:49→20:05)
[2018-07-19] MEDS: ALBUTEROL FS 2.5 MG/3 ML VIAL.NEB NEB SCH ×4 (00:50→20:05)
--- NOTE | 2018-07-19 01:12 | NUR ---
ms/rn notes Patient in stable condition. No significant changes noted. Lacitc acid result-2.8 from 3.2 First Aid Director, malia Smiley made aware. Ordered another lactic acid in am. will continue to monitor
[2018-07-19 04:00] VITALS: BP 148/82
[2018-07-19 05:15] VITALS: BP 148/82
--- NOTE | 2018-07-19 05:30 | NUR ---
MS/RN NOTES PATIENT IN BED, NO SIGNIFICANT CHANGES NOTE.D V/S STABLE, AFEBRILE. RESP. EVEN ET UNLABORED. NO RESP. DISTRESS NOTED. WITH 1:1 SITTER AT BEDSIDE. NO COMPLAINTS OF PAIN OR DISCOMFORT. SINUS RHYTHM ON CYBER SECURITY ENGINEER. WITH CONTINUOUS IVF ORDERED. NO CUTE DISTRESS NOTED. ALL NEEDS ATTENDED. WILL ENDORSE ACCORDINGLY FRO CONTINUITY OF CARE..
[2018-07-19 06:25] LABS: BASOPHILS % (AUTO) 0.1 % (0.0-2.0); EOSINOPHILS % (AUTO) 0.1 % (0.0-6.0); HEMATOCRIT 43 % (39-51); LYMPHOCYTES # (AUTO) 0.9 /CMM (0.8-4.8); LYMPHOCYTES % (AUTO) 6.7 % (20.0-44.0); MEAN CORPUSCULAR HEMOGLOBIN 31 PG (26.0-33.0); MEAN CORPUSCULAR HGB CONC 33 g/dl (31.0-36.0); MEAN CORPUSCULAR VOLUME 94 fL (80-96); MONOCYTES # (AUTO) 0.6 /CMM (0.1-1.30); MONOCYTES % (AUTO) 4.4 % (2.0-12.0); NEUTROPHILS # (AUTO) 11.7 /CMM (1.8-8.9); NEUTROPHILS % (AUTO) 88.7 % (43.0-81.0); PLATELET COUNT (AUTO) 195 /CMM (150-450); RDW COEFFICIENT OF VARIATION 14.7 (11.5-15.0); RED BLOOD CELL COUNT(AUTO) 4.53 MIL/uL (4.5-6.0); WHITE BLOOD COUNT (AUTO) 13.2 K/uL (4.3-11.0)
[2018-07-19 06:38] LABS: CALCIUM, SERUM 8.8 mg/dL (8.5-10.1); CARBON DIOXIDE 27 mmol/L (21-32); CHLORIDE 106 mmol/L (98-107); CREATININE 1.4 mg/dL (0.6-1.3); GLUCOSE 124 mg/dL (74-106); POTASSIUM 4.2 mmol/L (3.5-5.1); SODIUM SERUM 141 mmol/L (136-145); UREA NITROGEN, BLOOD 39 mg/dL (7-18)
[2018-07-19 08:00] VITALS: BP 163/95
[2018-07-19] MEDS ORDERED: FUROSEMIDE 40 MG/4 ML VIAL IV ONE ×2 (08:00→12:00)
--- NOTE | 2018-07-19 08:00 | NUR ---
RN NOTES RECEIVED PATIENT IN THE BED AWAKE, A/O X2 WITH CONFUSION. PATIENT TRYING TO GET OUT OF BED. HARD TO FOLLOW DIRECTION, KEEP REMOVING NC. SCHEDULED MEDICATION ADMINISTERED, V/S STABLE. INFUSING NS AT LEFT HAND INTACT. 1;1 SITTER NEXT TO THE BED FOR SAFETY, CALL LIGHT WITHIN TO REACH. PATIENT REFUSED BREATHING TX AT THIS TIME. CONTINUED MONITORING.
[2018-07-19] MEDS: ATORVASTATIN 10 MG TABLET PO SCH (09:26)
[2018-07-19] MEDS: ASPIRIN 81 MG TAB.CHEW PO SCH (09:26)
[2018-07-19] MEDS: FINASTERIDE (5 MG) 5 MG TABLET PO SCH (09:26)
[2018-07-19] MEDS: METOPROLOL SUCCINATE 50 MG TAB.SR.24H PO SCH (09:26)
[2018-07-19] MEDS: LEVOTHYROXINE SODIUM 75 MCG TABLET PO SCH (09:26)
[2018-07-19] MEDS: HEPARIN SODIUM, PORCINE 5000 UNITS/1 ML VIAL SQ SCH ×2 (09:27→20:20)
[2018-07-19] MEDS: LORAZEPAM INJ 2 MG/ML VIAL IV PRN ×2 (10:07→23:35)
--- NOTE | 2018-07-19 10:07 | NUR ---
RN NOTES ADMINISTERED ATIVAN 1 MG/ML IV PUSH FOR HARD TO FOLLOW DIRECTION, CONFUSED, CLAIMING OUT OF BED, FALL PRECAUTION. V/S TAKEN BP- 160, 93, P-84, CONTINUED MONITORING.
--- NOTE | 2018-07-19 12:00 | NUR ---
RN NOTES PATIENT RESTING IN THE BED ANXIETY MEDICATION WERE ADMINISTERED EFFECTIVE, NO ACUTE RESPIRATORY DISTRESS. 1:1 SITTER NEXT TO THE BED FOR SAFETY. CONTINUED MONITORING.
[2018-07-19] MEDS: IV NS 0.9% 1,000 ML IV PRN (14:12)
[2018-07-19 18:00] VITALS: BP 138/80
[2018-07-19] MEDS: CEFTRIAXONE 1 G in IV D5W 50 ML IV SCH (18:13)
--- NOTE | 2018-07-19 18:31 | NUR ---
RN NOTES PATIENT RESTING IN THE BED. SCHEDULED MEDICATION ADMINISTERED, V/S STABLE ON O2-3L NC, NO ACUTE RESPIRATORY DISTRESS. INFUSING NS AT 50ML/HR INTACT. 1:1 SITTER NEXT TO THE BED FOR SAFETY. ASSIST TURN AND REPOSTION Q 2 HR. CALL LIGHT WITHIN TO REACH. ENDORSED ONCOMING NURSE FOR PLAN OF CARE.
--- NOTE | 2018-07-19 19:10 | NUR ---
MS RN INITIAL NOTES Received patient asleep, arousable to touch, A/O x1-2, on left side lying position on bed with patent peripheral IV line L hand with NS infusing well @ 50ml/hr as ordered. With 1-on-1 sitter at bedside. No s/s of discomfort at this time. Afebrile, no respiratory distress noted. Will monitor accordingly.
[2018-07-19 20:00] VITALS: BP 134/87
[2018-07-19] MEDS: TAMSULOSIN 0.4 MG CAP.SR.24H PO SCH (21:33)
--- NOTE | 2018-07-19 23:35 | NUR ---
MS RN NOTES Patient awake, confused, pulling off IV line and nasal canula. Calmed the patient down, making comfortable on bed. Patient insist to remove NC and attempted to pull out IV line. Ativan administered as ordered. Monitored patient closely.
[2018-07-20] MEDS: IPRATROPIUM NEB FS 0.5 MG/2.5 ML AMPUL.NEB NEB SCH ×3 (01:32→14:01)
[2018-07-20] MEDS: ALBUTEROL FS 2.5 MG/3 ML VIAL.NEB NEB SCH ×3 (01:32→14:01)
[2018-07-20 06:25] LABS: CALCIUM, SERUM 8.6 mg/dL (8.5-10.1); CARBON DIOXIDE 28 mmol/L (21-32); CHLORIDE 107 mmol/L (98-107); CREATININE 1.7 mg/dL (0.6-1.3); GLUCOSE 98 mg/dL (74-106); POTASSIUM 3.6 mmol/L (3.5-5.1); SODIUM SERUM 143 mmol/L (136-145); UREA NITROGEN, BLOOD 41 mg/dL (7-18)
--- NOTE | 2018-07-20 06:37 | NUR ---
MS RN CLOSING NOTES Patient asleep, on left side lying position on bed, easily aroused, A/O X1-2, confused. With patent peripheral IV line L hand G#20 with NS infusing well @ 50ml/hr as ordered., no infiltration noted. Asleep throughout the shift with Ativan. No respiratory distress noted within the shift. On O2 inhalation @ 3LPM via NC as ordered. Patient noted removing his NC and pulling off IV line if awake. With 1:1 sitter always at bedside. Kept patient comfortable, attended all needs. For possible discharge today. Endorsed to the next shift.
--- NOTE | 2018-07-20 07:15 | NUR ---
MS RN OPENING NOTE RECEIVED PATIENT IN BED. ALERT ORIENTED X1, CONFUSED AND AGITATED. ON 3L O2 VIA NC, RECEIVING BREATHING TREATMENT AT BEDSIDE. TOLERATING WELL. IN NO APPARENT DISTRESS OR DISCOMFORT AT THIS TIME. RESPIRATIONS EVEN AND UNLABORED. PATIENT IS ABLE TO COMMUNICATE BASIC NEEDS. PATIENT WITH LEFT HAND 20G WITH FLUIDS RUNNING AT 50ML/HR. PATIENT IS WITH A SITTER AT BEDSIDE DUE TO ATTEMPTS TO PULL OUT IVS AND LINES, AND BEING AGITATED AND COMBATIVE AT TIMES. PATIENT KEPT CLEAN AND COMFORTABLE, SAFETY MEASURES IN PLACE, BED IN LOW LOCKED POSITION, SIDE RAILS UP X3, SITTER AT BEDSIDE, CALL LIGHT WITHIN EASY REACH. WILL CONTINUE TO MONITOR.
[2018-07-20 07:59] LABS: BASOPHILS % (AUTO) 0.3 % (0.0-2.0); HEMATOCRIT 46 % (39-51); HEMOGLOBIN 14.8 g/dL (13.5-17.5); LYMPHOCYTES # (AUTO) 1.4 /CMM (0.8-4.8); MEAN CORPUSCULAR HEMOGLOBIN 31 PG (26.0-33.0); MEAN CORPUSCULAR HGB CONC 32 g/dl (31.0-36.0); MEAN CORPUSCULAR VOLUME 95 fL (80-96); MONOCYTES # (AUTO) 0.8 /CMM (0.1-1.30); MONOCYTES % (AUTO) 8.9 % (2.0-12.0); NEUTROPHILS # (AUTO) 6.8 /CMM (1.8-8.9); NEUTROPHILS % (AUTO) 74.8 % (43.0-81.0); PLATELET COUNT (AUTO) 211 /CMM (150-450); RDW COEFFICIENT OF VARIATION 14.8 (11.5-15.0); RED BLOOD CELL COUNT(AUTO) 4.81 MIL/uL (4.5-6.0); WHITE BLOOD COUNT (AUTO) 9.1 K/uL (4.3-11.0)
[2018-07-20 08:00] VITALS: BP 133/88
[2018-07-20] MEDS: LEVOTHYROXINE SODIUM 75 MCG TABLET PO SCH (08:42)
[2018-07-20 08:43] VITALS: BP 133/88
[2018-07-20] MEDS: METOPROLOL SUCCINATE 50 MG TAB.SR.24H PO SCH (08:43)
[2018-07-20] MEDS: FINASTERIDE (5 MG) 5 MG TABLET PO SCH (08:43)
[2018-07-20] MEDS: ASPIRIN 81 MG TAB.CHEW PO SCH (08:43)
[2018-07-20] MEDS: HEPARIN SODIUM, PORCINE 5000 UNITS/1 ML VIAL SQ SCH (08:49)
[2018-07-20] MEDS: LORAZEPAM INJ 2 MG/ML VIAL IV PRN (10:13)
--- NOTE | 2018-07-20 10:15 | NUR ---
PRN ATIVAN ADMINISTERED PATIENT IS AGITATED, COMBATIVE, KICKING, TRYING TO GET OUT OF BED. LEGS ARE HALF WAY DANGLING FROM THE BED. ATTEMPTED TO CALM THE PATIENT DOWN AND REORIENT. PATIENT CONTINUES TO TRY TO CLIMB OUT OF BED. WILL CONTINUE TO MONITOR.
[2018-07-20] MEDS ORDERED: AZIT250T13 PO (14:00)
--- NOTE | 2018-07-20 17:00 | NUR ---
REPORT GIVEN TO GENEVA MCINTYRE AT [facility] REGARDING PATIENT'S TRANSFER.
--- NOTE | 2018-07-20 17:20 | NUR ---
MS HEALTH INFORMATION TECH NOTE RECEIVED ORDER FOR DISCHARGE. [facility] PATIENT ALERT ORIENTED X1, CONFUSED AND FORGETFUL. ON 3L O2 VIA NC TOLERATING WELL. IN NO APPARENT DISTRESS OR DISCOMFORT AT THIS TIME. RESPIRATIONS EVEN AND UNLABORED. VITAL SIGNS STABLE. PATIENT IS STABLE AND COOPERATIVE AT THIS TIME. [facility] PREPARED FOR DISCHARGE AND DISCUSSED WITH FAMILY/PATIENT. DISCHARGE INSTRUCTIONS GIVEN TO FAMILY/ PATIENT. NEW AND OLD MEDICATIONS DISCUSSED. BELONGINGS CHECKED AND ACCOUNTED FOR. SKIN REASSESSED. PICTURES TAKEN AND PLACED IN CHART. ALL PAPERWORK SIGNED COPIES PLACED IN CHART. IVC REMOVED FROM LEFT HAND, TIP INTACT. ID BAND REMOVED. PATIENT WAS ESCORTED BY AMBULANCE TEAM AND LEFT THE UNIT AT 1720.
== END 2018-07-20 17:16 | DRG 280 ==
LOC: ER 16:42 → ICU 19:19 → TELE 07-17 19:03 → MED 07-18 15:05 → TELE 07-18 22:13 → MED 07-19 08:06
PROVIDERS: ADMIT Nurse Practitioner Acute Care; ATTEND Nurse Practitioner Acute Care
PROC: 5A09357 Assistance with Respiratory Ventilation, Less than 24 Consecutive Hours, Continuous Positive Airway Pressure (ICD-10-PCS; principal; 2018-07-15)
DX: I11.0 Hypertensive heart disease with heart failure (principal); J96.02 Acute respiratory failure with hypercapnia; I21.4 Non-ST elevation (NSTEMI) myocardial infarction; J96.01 Acute respiratory failure with hypoxia; N17.0 Acute kidney failure with tubular necrosis; R65.11 Systemic inflammatory response syndrome (SIRS) of non-infectious origin with acute organ dysfunction; J44.1 Chronic obstructive pulmonary disease with (acute) exacerbation; I47.2 Ventricular tachycardia; E87.2 Acidosis; I50.33 Acute on chronic diastolic (congestive) heart failure; Z95.1 Presence of aortocoronary bypass graft; N40.0 Benign prostatic hyperplasia without lower urinary tract symptoms; E03.9 Hypothyroidism, unspecified; E78.5 Hyperlipidemia, unspecified; F17.210 Nicotine dependence, cigarettes, uncomplicated; F03.90 Unspecified dementia, unspecified severity, without behavioral disturbance, psychotic disturbance, mood disturbance, and anxiety; I35.0 Nonrheumatic aortic (valve) stenosis; I34.0 Nonrheumatic mitral (valve) insufficiency; D72.829 Elevated white blood cell count, unspecified; I71.2 Thoracic aortic aneurysm, without rupture
CPT/HCPCS: 36415; 36600; 71045-TC; 76770-TC; 80048-TC; 80053-TC; 80061-TC; 80076-TC; 81000-TC; 82248-TC; 82306; 82570-TC; 82803-TC; 83605-TC; 83690-TC; 83735-TC; 83880; 84100-TC; 84155-TC; 84300-TC; 84439-TC; 84443-TC; 84484-TC; 85025-TC; 85730-TC; 87040-TC; 87081-TC; 87086-TC; 93307-TC; 93970-TC; 94660; 94760-TC; 94799-TC; A4606; A6402; C9113; J0282; J0692; J0696; J1644; J1940; J2060; J2920; J2930; J3490; J7030; J7040; J7060; Z7610